=== PATIENT | female | born 1980 | race Caucasian/White ===

== ENCOUNTER 2021-05-26 09:45 | Emergency (ER) | payer MEDICAID ==
[~2021-05-26] VITALS: Ht 134.6 cm; Wt 62.6 kg
[2021-05-26 09:45] VITALS: BP 125/79
--- NOTE | 2021-05-26 09:55 | NUR ---
DR ESCALONA AT FOR EVAL.
[2021-05-26] MEDS ORDERED: IBUP-1955 PO (09:59)
== END 2021-05-26 10:01 | disposition home or self-care (01) ==
LOC: ER 09:53
DX: S13.4XXA Sprain of ligaments of cervical spine, initial encounter (principal); V49.59XA Passenger injured in collision with other motor vehicles in traffic accident, initial encounter; Y93.89 Activity, other specified; Y92.413 State road as the place of occurrence of the external cause; Y99.8 Other external cause status